=== PATIENT | male | born 1940 | race African-American/Black ===

== ENCOUNTER 2017-10-06 17:44 | Inpatient (IN) | payer OTHER ==
[~2017-10-06] VITALS: Ht 177.8 cm; Wt 104.9 kg
[2017-10-06 20:14] LABS: BASOPHIL % 0.4 % (0-2); PLATELET COUNT 220 x10^3mcL (130-400); RED CELL DISTRIBUTION WIDTH 13.7 % (11.5-14.5)
[2017-10-06 20:15] LABS: CALCIUM 8.7 mg/dL (8.5-10.1); CARBON DIOXIDE 26.1 mmol/L (21-32); CHLORIDE SERUM 109 mmol/L (98-107); CREATININE SERUM 1.2 mg/dL (0.7-1.3); GLUCOSE SERUM 113 mg/dL (74-106); POTASSIUM SERUM 3.8 mmol/L (3.5-5.1); SODIUM SERUM 141 mmol/L (136-145)
[2017-10-06 20:20] LABS: ALKALINE PHOSPHATASE 65 U/L (46-116); ALT/SGPT 12 U/L (16-63); AST/SGOT 12 U/L (15-37); BILIRUBIN TOTAL 0.35 mg/dL (0.20-1.00); TOTAL PROTEIN, SERUM 6.6 g/dL (6.4-8.2)
[2017-10-06 20:22] LABS: ALBUMIN 3.1 g/dL (3.4-5.0)
[2017-10-06 20:31] LABS: microscopic required? NO
[2017-10-06 21:04] LABS: UA SPECIFIC GRAVITY >=1.030 (1.005-1.035); urine erythrocyte NEGATIVE (NEGATIVE)
[2017-10-06] MEDS ORDERED: METFORMIN HCL500 MG PO (22:57)
[2017-10-06] MEDS ORDERED: ASPIR 8181 MG PO (22:58)
[2017-10-06] MEDS ORDERED: CORE25 (22:59)
[2017-10-06 23:45] LABS: CHOLESTEROL/HDL RATIO 3.8; MAGNESIUM 1.9 mg/dL (1.8-2.4); PHOSPHOROUS 3.7 mg/dL (2.5-4.9)
[2017-10-07] VITALS (7 sets, daily range): BP systolic 111–142; BP diastolic 61–95
[2017-10-07 00:03] LABS: FREE T4 1.36 ng/dL (0.76-1.46); FREE THYROXINE INDEX 4.3 ug/dL (1.4-4.5)
[2017-10-07 00:32] LABS: T3 TOTAL 1.34 ng/mL
[2017-10-07 07:35] LABS: BASOPHIL % 0.2 % (0-2); PLATELET COUNT 205 x10^3mcL (130-400); RED CELL DISTRIBUTION WIDTH 13.6 % (11.5-14.5)
[2017-10-07 07:40] LABS: CALCIUM 8.5 mg/dL (8.5-10.1); CARBON DIOXIDE 29.1 mmol/L (21-32); CHLORIDE SERUM 107 mmol/L (98-107); CREATININE SERUM 1.2 mg/dL (0.7-1.3); GLUCOSE SERUM 142 mg/dL (74-106); POTASSIUM SERUM 3.6 mmol/L (3.5-5.1); SODIUM SERUM 142 mmol/L (136-145)
[2017-10-08 06:03] VITALS: BP 99/62
[2017-10-08 06:04] VITALS: BP 128/67
[2017-10-08 08:04] LABS: BASOPHIL % 0.5 % (0-2); PLATELET COUNT 208 x10^3mcL (130-400); RED CELL DISTRIBUTION WIDTH 13.8 % (11.5-14.5)
[2017-10-08 08:36] LABS: CALCIUM 8.7 mg/dL (8.5-10.1); CARBON DIOXIDE 29.9 mmol/L (21-32); CHLORIDE SERUM 104 mmol/L (98-107); CREATININE SERUM 1.2 mg/dL (0.7-1.3); GLUCOSE SERUM 132 mg/dL (74-106); POTASSIUM SERUM 3.5 mmol/L (3.5-5.1); SODIUM SERUM 140 mmol/L (136-145)
[2017-10-08 10:16] VITALS: BP 115/70
[2017-10-08] MEDS ORDERED: LIPI20 PO (10:58)
[2017-10-08] MEDS ORDERED: ELIQUIS5 MG PO (11:00)
[2017-10-08] MEDS ORDERED: LASIX20 MG PO (11:01)
[2017-10-08] MEDS ORDERED: ELIQUIS2.5 MG PO (11:03)
[2017-10-08 11:16] VITALS: BP 115/70
== END 2017-10-08 13:45 | disposition home or self-care (01) | DRG 291 ==
LOC: ED 17:44 → DU 22:30
PROVIDERS: Emergency Medicine; ADMIT Student in an Organized Health Care Education/Training Program
DX: I50.43 Acute on chronic combined systolic (congestive) and diastolic (congestive) heart failure (principal); J96.01 Acute respiratory failure with hypoxia; D68.69 Other thrombophilia; I82.4Z1 Acute embolism and thrombosis of unspecified deep veins of right distal lower extremity; E44.0 Moderate protein-calorie malnutrition; E11.65 Type 2 diabetes mellitus with hyperglycemia; E11.59 Type 2 diabetes mellitus with other circulatory complications; E78.2 Mixed hyperlipidemia; Z87.442 Personal history of urinary calculi; Z79.84 Long term (current) use of oral hypoglycemic drugs; Z87.891 Personal history of nicotine dependence; Z68.33 Body mass index [BMI] 33.0-33.9, adult
CPT/HCPCS: 36600; 82962; 83880; 84439; 94150; J1644; J1940; J7030; J7620; Q0092

== ENCOUNTER 2017-12-17 01:36 | Observation (INO) | payer OTHER ==
[~2017-12-17] VITALS: Ht 175.3 cm; Wt 105.7 kg
[2017-12-17] VITALS (8 sets, daily range): BP systolic 110–137; BP diastolic 37–84; Ht 175.3 cm; Wt 105.7 kg
[~2017-12-17 01:36] MED LIST: ASPIR 8181 MG PO; CORE25; ELIQUIS2.5 MG PO; ELIQUIS5 MG PO; LASIX20 MG PO; LIPI20 PO; METFORMIN HCL500 MG PO
[2017-12-17 02:27] LABS: BASOPHIL % 0.5 % (0-2); PLATELET COUNT 201 x10^3mcL (130-400); RED CELL DISTRIBUTION WIDTH 13.9 % (11.5-14.5)
[2017-12-17 02:37] LABS: CALCIUM 8.6 mg/dL (8.5-10.1); CARBON DIOXIDE 26.9 mmol/L (21-32); CHLORIDE SERUM 107 mmol/L (98-107); CREATININE SERUM 1.1 mg/dL (0.7-1.3); GLUCOSE SERUM 141 mg/dL (74-106); POTASSIUM SERUM 3.7 mmol/L (3.5-5.1); SODIUM SERUM 142 mmol/L (136-145)
[2017-12-17 02:42] LABS: ALKALINE PHOSPHATASE 66 U/L (46-116); ALT/SGPT 21 U/L (16-63); AST/SGOT 19 U/L (15-37); BILIRUBIN TOTAL 0.39 mg/dL (0.20-1.00); TOTAL PROTEIN, SERUM 6.3 g/dL (6.4-8.2)
[2017-12-17 02:43] LABS: ALBUMIN 3.1 g/dL (3.4-5.0)
[2017-12-17] MEDS ORDERED: ELIQUIS2.5 MG (03:06)
[2017-12-17] MEDS ORDERED: CARVEDILOL3.125 M1 (03:06)
[2017-12-17] MEDS ORDERED: LASIX20 MG (03:07)
[2017-12-17 04:14] LABS: microscopic required? NO
[2017-12-17 04:35] LABS: MAGNESIUM 1.9 mg/dL (1.8-2.4); PHOSPHOROUS 3.6 mg/dL (2.5-4.9)
[2017-12-17 04:37] LABS: CHOLESTEROL/HDL RATIO 2.7
[2017-12-17 04:41] LABS: T3 TOTAL 1.55 ng/mL
[2017-12-17 04:42] LABS: FREE T4 1.44 ng/dL (0.76-1.46); FREE THYROXINE INDEX 3.2 ug/dL (1.4-4.5)
[2017-12-17 04:55] LABS: UA SPECIFIC GRAVITY 1.015 (1.005-1.035); urine erythrocyte NEGATIVE (NEGATIVE)
[2017-12-17 05:03] LABS: AMPHETAMINE QUAL UR NONE DETECTED (NEG <=1000)
[2017-12-18 04:59] VITALS: BP 110/63
[2017-12-18 06:44] LABS: BASOPHIL % 0.3 % (0-2); CALCIUM 8.4 mg/dL (8.5-10.1); CHLORIDE SERUM 103 mmol/L (98-107); CREATININE SERUM 1.1 mg/dL (0.7-1.3); GLUCOSE SERUM 135 mg/dL (74-106); LIPASE 95 IU/L (73-393); MAGNESIUM 2.1 mg/dL (1.8-2.4); PHOSPHOROUS 3.8 mg/dL (2.5-4.9); PLATELET COUNT 182 x10^3mcL (130-400); POTASSIUM SERUM 3.4 mmol/L (3.5-5.1); RED CELL DISTRIBUTION WIDTH 13.7 % (11.5-14.5); SODIUM SERUM 142 mmol/L (136-145)
[2017-12-18 09:20] VITALS: BP 105/73
[2017-12-18 16:55] VITALS: BP 109/73
[2017-12-18] MEDS ORDERED: ZES5 PO (18:43)
[2017-12-18] MEDS ORDERED: ALD25 PO (18:44)
[2017-12-18] MEDS ORDERED: LASIX40 MG PO (18:50)
[2017-12-18] MEDS ORDERED: KLOR-CON M2020 MEQ PO (19:44)
== END 2017-12-18 19:50 | disposition home or self-care (01) | DRG 291 ==
LOC: ED 01:36 → DU 03:13
PROVIDERS: Emergency Medicine; Family Medicine
DX: I50.43 Acute on chronic combined systolic (congestive) and diastolic (congestive) heart failure (principal); J96.21 Acute and chronic respiratory failure with hypoxia; K85.90 Acute pancreatitis without necrosis or infection, unspecified; E44.0 Moderate protein-calorie malnutrition; T50.1X6A Underdosing of loop [high-ceiling] diuretics, initial encounter; E11.65 Type 2 diabetes mellitus with hyperglycemia; E78.5 Hyperlipidemia, unspecified; Z68.36 Body mass index [BMI] 36.0-36.9, adult; Z86.718 Personal history of other venous thrombosis and embolism; Z79.01 Long term (current) use of anticoagulants; Z79.84 Long term (current) use of oral hypoglycemic drugs; Z87.891 Personal history of nicotine dependence; Z87.442 Personal history of urinary calculi; Z91.128 Patient's intentional underdosing of medication regimen for other reason; Y92.009 Unspecified place in unspecified non-institutional (private) residence as the place of occurrence of the external cause
CPT/HCPCS: 36600; 82962; 83880; 84439; 94150; G0378; J1940; J2785; J7030; J7620; Q0092

== ENCOUNTER 2019-10-18 18:13 | Inpatient (IN) | payer OTHER ==
[~2019-10-18] VITALS: Ht 175.3 cm; Wt 94.8 kg
[~2019-10-18 18:13] MED LIST changes: +ALD25 PO; +CARVEDILOL3.125 M1; +ELIQUIS2.5 MG; +KLOR-CON M2020 MEQ PO; +LASIX20 MG; +LASIX40 MG PO; +ZES5 PO
[2019-10-18 18:18] VITALS: Ht 175.3 cm; Wt 94.8 kg
--- NOTE | 2019-10-18 18:23 | NUR ---
B/B AMBULANCE FROM HOME FOR GENREALIZED WEAKNESS. PT SPEAKS FULL SEENCENSE. FOLLOWS COMMAND, DENIES ADKINS AND DIZZINESS. NO SOB BREATHING EVEN.
--- NOTE | 2019-10-18 18:25 | NUR ---
EKG IS BEDSIDE.
--- NOTE | 2019-10-18 18:53 | NUR ---
DR. ESPINAL BEDSIDE TO EXAMINE PT.
[2019-10-18] MEDS ORDERED: FLO4 PO (19:16)
--- NOTE | 2019-10-18 19:30 | NUR ---
PT UNABLE TO GIVE URINE SAMPLE AT THIS TIME.
[2019-10-18 19:41] LABS: PLATELET COUNT 220 x10^3mcL (130-400); RED CELL DISTRIBUTION WIDTH 13.6 % (11.5-14.5)
[2019-10-18 19:50] LABS: BASOPHIL % 0 % (0-2)
--- NOTE | 2019-10-18 19:54 | NUR ---
PT RESTING IN BED WITH NO SIGNS OF DISTRESS.
--- NOTE | 2019-10-18 19:58 | NUR ---
PT OFF OF FLOOR TO RADIOLOGY.
[2019-10-18 20:14] LABS: ALKALINE PHOSPHATASE 85 U/L (46-116); ALT/SGPT 16 U/L (16-63); AST/SGOT 7 U/L (15-37); BILIRUBIN TOTAL 0.28 mg/dL (0.20-1.00); CALCIUM 8.5 mg/dL (8.5-10.1); CARBON DIOXIDE 25.1 mmol/L (21-32); CHLORIDE SERUM 104 mmol/L (98-107); CREATININE SERUM 1.3 mg/dL (0.7-1.3); GLUCOSE SERUM 133 mg/dL (74-106); HDL CHOLESTEROL 40 mg/dL (40-60); LIPASE 622 IU/L (73-393); POTASSIUM SERUM 3.7 mmol/L (3.5-5.1); SODIUM SERUM 140 mmol/L (136-145); TOTAL PROTEIN, SERUM 6.9 g/dL (6.4-8.2)
[2019-10-18 20:15] LABS: ALBUMIN 3.2 g/dL (3.4-5.0); CHOLESTEROL 133 mg/dL (<200)
[2019-10-18 20:37] LABS: microscopic required? NO
[2019-10-18 20:48] LABS: urine erythrocyte NEGATIVE (NEGATIVE)
[2019-10-18 21:03] LABS: AMPHETAMINE QUAL UR NONE DETECTED (See below)
--- NOTE | 2019-10-18 21:09 | NUR ---
PT RESTING IN BED WITH NO SIGNS OF DISTRESS.
[2019-10-18 21:20] LABS: T4(THYROXINE) 11.6 ug/dL (4.7-13.3)
--- NOTE | 2019-10-18 22:13 | NUR ---
PT RESTING WITH BREATHS EVEN AND UNLABORED WITH NO SIGNS OF DISTRESS.
--- NOTE | 2019-10-18 23:07 | NUR ---
PT RESTING IN ROOM WITH EYES CLOSED WITH NO SIGNS OF DISTRESS.
--- NOTE | 2019-10-19 00:07 | NUR ---
REPORT GIVEN TO DINORA YI.
[2019-10-19 01:06] VITALS: BP 151/86
--- NOTE | 2019-10-19 01:13 | NUR ---
RECEIVED PT FROM ED, NO ACUTE DISTRESS. ORIENTED PT TO ROOM. BED IN LOWEST POSITION, SIDE RAILS UP X2, CALL LIGHT WITHIN REACH. WILL CONTINUE TO MONITOR.
--- NOTE | 2019-10-19 01:16 | NUR ---
RECEIVED PT FROM ER, PT ADMIT FOR PANCREATITIS, PT IS A/O X4, VERBAL RESPONSIVE. LUNG SOUND CLEAR BILATRAEL, NO COUGH, NO SOB. PT IS ON TELE 27, FIRST DEGREE AV BLOCK. DENY ANY CHEST PAIN OR DISCOMFORT, BOWEL SOUND PRESENT ALL 4 QUADRANTS, NO DISTENTION, ON TENDER. DENY ANY ABD PAIN AT THIS TIME, PEDAL PULSE PRESENT BOTH FEET, TRACE EDEMA BLE. IV AT RIGHT HAND, NO LEAKING, NO INFILTRATION ALL ADLS ASSIST, ALL NEED MET, CALL LIGHT IN REACH, WILL CONTINUE TO MONITOR.
[2019-10-19 06:12] VITALS: BP 120/63
--- NOTE | 2019-10-19 06:34 | NUR ---
PT SLEPT PERIODICALLY THROUGHOUT NIGHT, NO ACUTE DISTRESS. ALL NEEDS MET AND ATTENDED TO. NO SIGNIFICANT CHANGES. IV PATENT AND INTACT. BED IN LOWEST POSITION, SIDE RAILS UP X2, CALL LIGHT WITHIN REACH. WILL ENDORSE CARE TO ONCOMING NURSE.
--- NOTE | 2019-10-19 07:30 | NUR ---
RECEIVED REPORT FROM NIGHT RN. PT SLEEPING IN BED WITH NO APPARENT DISTRESS. CALL LIGHT WITHIN REACH AND SIDE RAILS X2 UP.
[2019-10-19 07:38] LABS: CALCIUM 8.5 mg/dL (8.5-10.1); CARBON DIOXIDE 28.4 mmol/L (21-32); CHLORIDE SERUM 108 mmol/L (98-107); GLUCOSE SERUM 91 mg/dL (74-106); LIPASE 397 IU/L (73-393); POTASSIUM SERUM 3.6 mmol/L (3.5-5.1); SODIUM SERUM 143 mmol/L (136-145)
[2019-10-19 08:03] LABS: BASOPHIL % 0.5 % (0-2); PLATELET COUNT 209 x10^3mcL (130-400); RED CELL DISTRIBUTION WIDTH 13.6 % (11.5-14.5)
[2019-10-19 08:45] VITALS: BP 124/63
--- NOTE | 2019-10-19 09:00 | NUR ---
PT AAOX4 AND SITTING ON BED WATCHING TV. FAMILY AT BEDSIDE. NO APPARENT DISTRESS AT THIS TIME. CALL LIGHT WITHIN REACH AND BED IN LOWEST POSITION.
--- NOTE | 2019-10-19 09:34 | NUR ---
PT C/O 8/10 FLANK PAIN. REFUSED TYLENOL PRN. LUNG SOUNDS CLR BILATERALLY. PERIPHERAL PULSES PALPABLE. ABD SOFT WITH ACTIVE BOWEL SOUNDS.
[2019-10-19 12:30] VITALS: BP 107/68
[2019-10-19 17:28] VITALS: BP 123/60
--- NOTE | 2019-10-19 18:11 | NUR ---
PT RESTING IN BED WATCHING IPAD. RESPIRATIONS UNLABORED AND NO SOB NOTED. DENIES ANY PAIN/DISCOMFORT. IV SITE TO R FA WITH NS AT 50 ML/HR. IV SITE CDI. NO SIGNIFICANT CHANGE. WILL ENDORSE CARE TO NIGHT RN.
--- NOTE | 2019-10-19 18:42 | NUR ---
PT ON CLR LIQUID DIET. TOLERATED WELL. NO ABD PAIN AND NO N/V.
--- NOTE | 2019-10-19 18:43 | NUR ---
NURSING CO-SIGN THE DOCUMENTATION ENTERED BY THE RN KD HAS BEEN REVIEWED. REVIEWED/CO-SIGNED BY: Gabi Rodrigues DOCUMENTATION DONE BY:DEWEY LÓPEZ
--- NOTE | 2019-10-19 20:00 | NUR ---
PT A/A/O X4. DENIES DIZZINESS AND HEADACHE. BREATH SOUNDS CLEAR. BREATHING EVEN AND UNLABORED ON ROOM AIR. DENIES CHEST PAIN AND PRESSURE. BOWEL SOUNDS ACTIVE. NO C/O N/V AND ABD PAIN. IV INTACT ON THE RIGHT HAND INFUSING WITH 1/2 NS AT 50 ML/HR. MADE PT COMFORTABLE. PLACED CALL LIGHT WITH IN REACH. WILL CONTINUE TO MONITOR.
[2019-10-19 20:55] VITALS: BP 127/72
--- NOTE | 2019-10-20 00:54 | NUR ---
PT RESTING WITH EYES CLOSED. NO DISTRESS AND DISCOMFORT NOTED. WILL CONTINUE TO MONITOR.
[2019-10-20 04:53] VITALS: BP 145/86
[2019-10-20 07:00] LABS: BASOPHIL % 0.6 % (0-2); PLATELET COUNT 214 x10^3mcL (130-400); RED CELL DISTRIBUTION WIDTH 13.7 % (11.5-14.5)
--- NOTE | 2019-10-20 07:09 | NUR ---
PT SITTING ON THE EDGE OF THE BED. NO C/O DISCOMFORT THUS FAR. IV INTACT AND INFUSING ORDERED. MADE PT COMFORTABLE. WILL ENDORSE TO THE AM NURSE ACCORDINGLY.
[2019-10-20 07:25] LABS: CALCIUM 8.9 mg/dL (8.5-10.1); CHLORIDE SERUM 106 mmol/L (98-107); CREATININE SERUM 1.1 mg/dL (0.7-1.3); GLUCOSE SERUM 83 mg/dL (74-106); LIPASE 301 IU/L (73-393); MAGNESIUM 2.1 mg/dL (1.8-2.4); POTASSIUM SERUM 4.1 mmol/L (3.5-5.1); SODIUM SERUM 139 mmol/L (136-145)
--- NOTE | 2019-10-20 07:30 | NUR ---
RECEIVED PATIENT IN BED, AWAKE, ALERT VERBALIZES NEEDS WELL. IVF INFUSING WELL, SITE PATENT. TELE 27 NSR WITH 1ST DEGRESS AVB. DENIES ANY PAIN OR DISCOMFORT. AMBULATES AD JUAN TO THE BATHROOM PRN. WILL CONTINUE TO MONITOR.
[2019-10-20 07:36] LABS: CARBON DIOXIDE 25.9 mmol/L (21-32)
[2019-10-20 07:54] LABS: CHOLESTEROL/HDL RATIO 3.8
[2019-10-20 07:58] VITALS: BP 115/67
[2019-10-20 12:10] VITALS: BP 134/62
[2019-10-20 16:14] VITALS: BP 124/52
--- NOTE | 2019-10-20 17:12 | NUR ---
PATIENT'S PLAN OF CARE WAS DISCUSSED AND REVIEWED WITH ACCOUNTS PAYABLE TECHNICIAN:TYREE DOMINGO. I HAVE REVIEWED THE DATA COLLECTION BY ACCOUNTS PAYABLE TECHNICIAN (NAME):TYREE DOMINGO. ENTERED ON (DATE/TIME):10/20/19. I CONCUR WITH THE DATA AND ANY EXCEPTIONS OR COMMENTS ARE LISTED BELOW:
--- NOTE | 2019-10-20 18:01 | NUR ---
PATIENT REMAINS IN BED, AWAKE ALERT AND ORIENTED. IVF INFUSING WELL SITE PATENT. SPOUSE HAS BEEN INTO VISIT THIS AFTERNOON. DENIES ANY PAIN OR DISCOMFORT. TOLERATING DIET WELL.
[2019-10-20] MEDS ORDERED: NORCO1 TA2 PO (18:07)
--- NOTE | 2019-10-20 18:52 | NUR ---
PATIENT READY FOR D/C HOME. HL AND TELE DC'D. PRESCRIPTION AND DISCHARGE INSTRUCTIONS GIVEN. PERSONAL BELONGINGS LIST SIGNED. EDUCATION PROVIDED. CONDITION APPEARS STABLE.
== END 2019-10-20 18:57 | disposition home or self-care (01) | DRG 439 ==
LOC: ED 18:13 → DU 23:52
PROVIDERS: Emergency Medicine; Internal Medicine Nephrology; ADMIT Internal Medicine Pulmonary Disease
DX: K85.90 Acute pancreatitis without necrosis or infection, unspecified (principal); G45.9 Transient cerebral ischemic attack, unspecified; E11.9 Type 2 diabetes mellitus without complications; I11.0 Hypertensive heart disease with heart failure; I50.9 Heart failure, unspecified; N40.0 Benign prostatic hyperplasia without lower urinary tract symptoms; Z95.810 Presence of automatic (implantable) cardiac defibrillator
CPT/HCPCS: 82962; 83880; 87804; G0378; G0480; Q0092